=== PATIENT | male | born 1975 | race Two or more races ===

== ENCOUNTER 2018-01-06 07:36 | Outpatient (CLI) | payer OTHER ==
[~2018-01-06 07:36] MED LIST: TRAMADOL HCL-AP1 TAB PO
== END 2018-01-06 07:58 | disposition home or self-care (01) ==
LOC: NUCLEAR 07:36
DX: R94.31 Abnormal electrocardiogram [ECG] [EKG] (principal)
CPT/HCPCS: 78452; 93017; A9500

== ENCOUNTER 2023-07-24 09:04 | Outpatient (CLI) | payer OTHER | END 2023-07-24 09:18 | disposition home or self-care (01) | LOC: RAD 09:04 | DX: M99.01 Segmental and somatic dysfunction of cervical region (principal); M99.02 Segmental and somatic dysfunction of thoracic region; M99.03 Segmental and somatic dysfunction of lumbar region; M99.04 Segmental and somatic dysfunction of sacral region; M99.05 Segmental and somatic dysfunction of pelvic region ==

== ENCOUNTER 2024-10-05 07:09 | Outpatient (CLI) | payer OTHER | END 2024-10-05 07:10 | disposition home or self-care (01) | LOC: NUCLEAR 07:09 | PROVIDERS: ATTEND Internal Medicine | DX: I20.9 Angina pectoris, unspecified (principal) ==